=== PATIENT | male | born 1985 | race Caucasian/White ===

== ENCOUNTER → 2017-02-05 | Outpatient (CLI) | payer OTHER ==
[~2017-02-05] MED LIST: ASPCH81 PO; CLON0.5T3 PO; DIVA1CAP PO; ENAL5TAB83 PO; LVQ500 PO; SOTA80TA PO; WARF5TAB7 PO
[2017-02-05 12:13] LABS: MEAN CELL VOLUME 94.5 fL (80-100); MEAN CORPUSCULAR HEMOGLOBIN 33.8 pg (25-34); MEAN CORPUSCULAR HGB CONC 35.8 g/dl (32-36); MEAN PLATELET VOLUME 11.2 fL (7.4-10.4); PLATELET COUNT 102 K/uL (130-400); RED BLOOD COUNT 4.55 M/uL (4.7-6.1); WHITE BLOOD COUNT 2.99 K/uL (4.8-10.8)
[2017-02-05 12:49] LABS: ALT/SGPT 30 U/L (12-78); BLOOD UREA NITROGEN 19 mg/dl (7-18); BUN/CREATININE RATIO 34.2 (10-20); CALCIUM 9.4 mg/dl (8.5-10.1); CARBON DIOXIDE 26 mmol/L (21-32); CHLORIDE 104 mmol/L (98-107); CREATININE 0.55 mg/dl (0.60-1.40); GLUCOSE 72 mg/dl (70-99); POTASSIUM 4.2 mmol/L (3.5-5.1); SODIUM 140 mmol/L (136-145)
[2017-02-05 12:54] LABS: ALB/GLOB RATIO 0.8 (0.9-2); ALKALINE PHOSPHATASE 79 U/L (45-117); AST/SGOT 22 U/L (15-37)
== END | disposition home or self-care (01) ==
LOC: C.LAB1850 11:32
PROVIDERS: ATTEND Internal Medicine
DX: G40.909 Epilepsy, unspecified, not intractable, without status epilepticus (principal); I48.92 Unspecified atrial flutter

== ENCOUNTER 2017-09-26 16:27 | Emergency (ER) | payer OTHER ==
[2017-09-26 16:30] VITALS: TEMP 36.6
[2017-09-26] MEDS ORDERED: SODIUM CHLORIDE 0.9% 500ML 500 ML IV STA (16:46)
[2017-09-26 17:00] VITALS: O2SAT 95
[2017-09-26 17:13] LABS: BASO % 0.3 %; BASO ABS # 0.02 K/uL (0-0.2); COMPLETE YES; HEMATOCRIT 46.8 % (42-52); IG% 0.1 %; LYMPH % 9.1 %; LYMPH ABS # 0.71 K/uL (1.2-3.4); MEAN CELL VOLUME 94.7 fL (80-100); MEAN CORPUSCULAR HEMOGLOBIN 34.4 pg (25-34); MEAN CORPUSCULAR HGB CONC 36.3 g/dl (32-36); MEAN PLATELET VOLUME 11.6 fL (7.4-10.4); MONO % 11.8 %; NEUT % 78.7 %; PLATELET COUNT 109 K/uL (130-400); RED BLOOD COUNT 4.94 M/uL (4.7-6.1)
[2017-09-26 17:16] LABS: MANUAL MICROSCOPIC REQUIRED? NO; REVIEW REQ? NO; URINE APPEARANCE CLOUDY (CLEAR); URINE BILIRUBIN NEG (NEG); URINE COLOR ORANGE; URINE EPITHELIAL CELL AUTO 0-5 /lpf (0-5); URINE NITRITE NEG (NEG); URINE PH 7.5 (4.5-7.5); URINE SPECIFIC GRAVITY 1.019 (1.000-1.030); UROBILINOGEN NEG (NEG)
[2017-09-26 17:20] LABS: INR 3.2 (0.9-1.1); PARTIAL THROMBOPLASTIN RATIO 1.6; PROTHROMBIN TIME (PATIENT) 36.4 SECONDS (9.0-12.0)
[2017-09-26 17:22] LABS: SULFASALICYLIC ACID POS (NEG)
[2017-09-26] MEDS ORDERED: CEFTRIAXONE SOD INJ 1 GM ADDVIAL IV STA (17:24)
--- NOTE | 2017-09-26 17:29 | DIAGNOSTIC IMAGING REPORT ---
CHEST ONE VIEW PORTABLE CLINICAL HISTORY: CHEST PAIN dyspnea COMPARISON STUDY: 02/20/2016 FINDINGS: The bones soft tissues and hemidiaphragms are normal. The cardiomediastinal silhouette is normal. The lungs are clear. The pulmonary vasculature is normal. IMPRESSION: Negative chest. The above report was generated using voice recognition software. It may contain grammatical, syntax or spelling errors. Electronically signed by: Tu Wilkins M.D. 09/26/2017 5:28 PM Dictated Date/Time: 09/26/2017 5:27 PM
[2017-09-26 17:31] LABS: BLOOD UREA NITROGEN 13 mg/dl (7-18); BUN/CREATININE RATIO 22.3 (10-20); CALCIUM 9.3 mg/dl (8.5-10.1); CARBON DIOXIDE 26 mmol/L (21-32); CHLORIDE 102 mmol/L (98-107); CREATININE 0.56 mg/dl (0.60-1.40); GLUCOSE 81 mg/dl (70-99); SODIUM 137 mmol/L (136-145)
[2017-09-26] MEDS ORDERED: CEPH-571 PO (17:49)
--- NOTE | 2017-09-26 17:51 | EMERGENCY ROOM VISIT NOTE ---
History Report prepared by Vivi: Eliza Wynn Under the Supervision of: Dr. Santos Landa M.D. First contact with patient: 16:33 Chief Complaint: HEMATURIA Stated Complaint: PEEING BLOOD, SAYS HE IS REAL SICK-HEART CONDITION History of Present Illness The patient is a 32 year old white male with a past medical history of hypoplastic left heart, pneumonia, epilepsy who presents to the ED with a cc of persistent hematuria beginning today. Positive chills, glossy eyes. Negative testicular pain, penile pain, back pain, burning with urination, chest pain, leg swelling, sore throat, rhinorrhea. He is on Coumadin. He has not had any medication changes. He recently received his flu shot. No recent bike or horse riding. Source of History: patient, family Onset: today Position: other (global) Quality: other (hematuria) Timing: other (persistent) Associated Symptoms: + chills, No sorethroat, No chest pain, No back pain Note: Pt has glossy eyes. Pt denies testicular pain, penile pain, rhinorrhea, burning with urination, leg swelling. Review of Systems See HPI for pertinent positives and negatives. A total of ten systems were reviewed and were otherwise negative. 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 (7) Supraventricular tachycardia Family History Diabetes mellitus FH: heart disease FH: lung disease FHx: cancer Hypertension Kidney stones Social History Smoking Status: Never Smoker Drug Use: none Marital Status: single Housing Status: lives with family Occupation Status: disabled Current/Historical Medications Scheduled Aspirin (Aspirin Tab-Chewable *), 81 MG PO DAILY Cephalexin (Keflex), 1 CAP PO BID Clonazepam (Klonopin), 0.25 MG PO HS Divalproex Sodium (Divalproex Sodium), 475 MG PO BID Enalapril (Vasotec), 5 MG PO BID Sotalol Hcl (Sotalol Hcl), 80 MG PO BID Warfarin Sod (Jantoven), 5 MG PO DAILY Allergies Coded Allergies: No Known Allergies (Unverified , 09/26/17) Physical Exam Vital Signs Date Time Temp Pulse Resp B/P (MAP) Pulse Ox O2 Delivery O2 Flow Rate FiO2 09/26/17 18:22 84 18 107/81 98 Room Air 09/26/17 17:00 95 Room Air 09/26/17 16:30 36.6 71 20 127/75 95 Room Air Physical Exam GENERAL: Awake, alert, well-appearing, NAD HENT: Normocephalic, atraumatic. EYES: Some exophthalmos. Normal conjunctiva. Sclera non-icteric. NECK: Supple. No nuchal rigidity. FROM. RESPIRATORY: CTAB, no rhonchi, wheezing, crackles CARDIAC: RRR, no MRG ABDOMEN: Soft, NTND, BS+ : Foreskin present, but glans visible. No pain to penis. Bilateral testes descended. No pain or swelling. MSK: No chest wall TTP, no LE edema, no CVA TTP. NEURO: GCS 15, CN 2-12 intact, moves all 4s on command SKIN: No rash or jaundice noted. Medical Decision & Procedures ER Provider Diagnostic Interpretation: Radiology results as stated below per my review and radiologist interpretation: CHEST ONE VIEW PORTABLE CLINICAL HISTORY: CHEST PAIN dyspnea COMPARISON STUDY: 02/20/2016 FINDINGS: The bones soft tissues and hemidiaphragms are normal. The cardiomediastinal silhouette is normal. The lungs are clear. The pulmonary vasculature is normal. IMPRESSION: Negative chest. The above report was generated using voice recognition software. It may contain grammatical, syntax or spelling errors. Electronically signed by: Tu Wilkins M.D. 09/26/2017 5:28 PM Dictated Date/Time: 09/26/2017 5:27 PM Laboratory Results 09/26/17 16:52 Red Blood Count 4.94, Mean Corpuscular Volume 94.7, Mean Corpuscular Hemoglobin 34.4, Mean Corpuscular Hemoglobin Concent 36.3, Mean Platelet Volume 11.6, Neutrophils (%) (Auto) 78.7, Lymphocytes (%) (Auto) 9.1, Monocytes (%) (Auto) 11.8, Eosinophils (%) (Auto) 0.0, Basophils (%) (Auto) 0.3, Neutrophils # (Auto ) 6.14, Lymphocytes # (Auto) 0.71, Monocytes # (Auto) 0.92, Eosinophils # (Auto ) 0.00, Basophils # (Auto) 0.02 09/26/17 16:52 Test 09/26/17 16:52 09/26/17 16:57 White Blood Count 7.80 K/uL (4.8-10.8) Red Blood Count 4.94 M/uL (4.7-6.1) Hemoglobin 17.0 g/dL (14.0-18.0) Hematocrit 46.8 % (42-52) Mean Corpuscular Volume 94.7 fL (80-100) Mean Corpuscular Hemoglobin 34.4 pg (25-34) Mean Corpuscular Hemoglobin Concent 36.3 g/dl (32-36) Platelet Count 109 K/uL (130-400) Mean Platelet Volume 11.6 fL (7.4-10.4) Neutrophils (%) (Auto) 78.7 % Lymphocytes (%) (Auto) 9.1 % Monocytes (%) (Auto) 11.8 % Eosinophils (%) (Auto) 0.0 % Basophils (%) (Auto) 0.3 % Neutrophils # (Auto) 6.14 K/uL (1.4-6.5) Lymphocytes # (Auto) 0.71 K/uL (1.2-3.4) Monocytes # (Auto) 0.92 K/uL (0.11-0.59) Eosinophils # (Auto) 0.00 K/uL (0-0.5) Basophils # (Auto) 0.02 K/uL (0-0.2) RDW Standard Deviation 46.2 fL (36.4-46.3) RDW Coefficient of Variation 13.3 % (11.5-14.5) Immature Granulocyte % (Auto) 0.1 % Immature Granulocyte # (Auto) 0.01 K/uL (0.00-0.02) Prothrombin Time 36.4 SECONDS (9.0-12.0) Prothromb Time International Ratio 3.2 (0.9-1.1) Activated Partial Thromboplast Time 41.5 SECONDS (21.0-31.0) Partial Thromboplastin Ratio 1.6 Anion Gap 9.0 mmol/L (3-11) Estimated GFR () > 150.0 Estimated GFR (Non- 137.8 BUN/Creatinine Ratio 22.3 (10-20) Calcium Level 9.3 mg/dl (8.5-10.1) Total Creatine Kinase 79 U/L (39-308) Urine Color ORANGE Urine Appearance CLOUDY (CLEAR) Urine pH 7.5 (4.5-7.5) Urine Specific [place] 1.019 (1.000-1.030) Urine Protein 1+ (NEG) Urine Glucose (UA) NEG (NEG) Urine Ketones 2+ (NEG) Urine Occult Blood 3+ (NEG) Urine Nitrite NEG (NEG) Urine Bilirubin NEG (NEG) Urine Urobilinogen NEG (NEG) Urine Leukocyte Esterase MODERATE (NEG) Urine WBC (Auto) >30 /hpf (0-5) Urine RBC (Auto) >30 /hpf (0-4) Urine Hyaline Casts (Auto) 1-5 /lpf (0-5) Urine Epithelial Cells (Auto) 0-5 /lpf (0-5) Urine Bacteria (Auto) NEG (NEG) Laboratory results reviewed by me Medications Administered Medications (Trade) Dose Ordered Sig/Maya Route Start Time Stop Time Status Last Admin Dose Admin Sodium Chloride 500 ml @ 999 mls/hr Q31M STAT IV 09/26/17 16:46 09/26/17 17:16 DC 09/26/17 17:20 999 MLS/HR Ceftriaxone Sodium (Rocephin Inj) 1 gm NOW STAT IV 09/26/17 17:24 09/26/17 17:25 DC 09/26/17 17:50 1 GM ECG Indication: other Rate (beats per minute): 82 Rhythm: normal sinus Findings: RBBB, ST depression (V3, V4, V5, II, aVF), other (widened QRS) Comparison ECG Date: January 2016 Change: no significant change ED Course 1638: The patient was evaluated in room B12B. A complete history and physical exam was performed. 1646: NSS 500 ml @ 999 mls/hr IV. 1724: Rocephin Inj 1 gm IV. 1728: I reevaluated the patient. Discussed results and discharge instructions: He verbalized understanding and agreement. The patient is ready for discharge. Medical Decision Differential diagnosis: hemorrhagic cystitis, urothelial cancer, renal cell carcinoma, coagulopathy, kidney stone. The patient is a 32 year old white male with a past medical history of hypoplastic left heart, pneumonia, epilepsy who presents to the ED with a cc of persistent hematuria beginning today. Patient was seen and evaluated at the bedside. Patient stated this time he had no penile pain or dysuria. Patient denies any recent trauma. Patient is an issue with this in the past. No prior prior UTIs. Patient has had no back pain , nausea, vomiting. Patient's exam patient had no suprapubic tenderness denied any penile or testicular pain. There is no evident swelling and patient did not have any CVA tenderness to palpation. Patient did have blood work that was completed with a normal white count. Patient's symptoms stable. Patient's INR was mildly elevated at 3.2. Patient did have noted possible infected urine with rbc's. Patient had a normal CPK and normal kidney function. Patient was treated for possible infection. Patient had no CVA tenderness no white count and no change in his kidney function unlikely to be an obstructing or infected stone. Patient was told that if he had fevers, severe back pain, nausea, or vomiting he should return to the ER. Given the patient's mildly elevated INR of 3.2 his mother was told not to take his Coumadin tonight and make sure that she hasn't checked more routinely she has not been getting this checked. Patient's EKG was fairly unremarkable compared to priors and is likely consistent with his prior history of hypoplastic heart. Patient denied any shortness of breath or chest pain or lower extremity swelling. Patient did have a negative chest x-ray. Patient was looking and feeling very well. Patient did receive an IV dose of antibiotics and was discharged on by mouth antibiotics. Patient was given a referral to urology if he has persistent hematuria. Patient was given strict follow-up, discharge, and return precautions and was safely discharged to home. Medication Reconcilliation Current Medication List: was personally reviewed by me Blood Pressure Screening Patient's blood pressure: Normal blood pressure Blood pressure disposition: Did not require urgent referral Impression Primary Impression: Hemorrhagic cystitis Additional Impression: Hematuria Scribe Attestation The scribe's documentation has been prepared under my direction and personally reviewed by me in its entirety. I confirm that the note above accurately reflects all work, treatment, procedures, and medical decision making performed by me. Departure Information Dispostion Home / Self-Care Prescriptions Cephalexin (KEFLEX) 500 Mg Cap 1 CAP PO BID for 7 Days, #14 CAP Prov: Santos Landa M.D. 09/26/17 Referrals No Doctor, Assigned (PCP) Toribio Cook MD, Urology Patient Instructions ED Hematuria, ED UTI Cystitis Male, My [facility] Additional Instructions Please return to the emergency department if you have worsening or recurrent symptoms not amenable to at-home treatment. Please call for a follow-up appointment with her primary care physician. Please take your medications as prescribed. If you have other concerns and/or complaints please feel free to also call your primary care physician's office or return the ED for further evaluation, management, and treatment. Please call the urologist to obtain an appointment if you have persistent hematuria. You may take tylenol 1000mg every 6 hours as needed for pain. Take tramadol for breakthrough pain. Thank you for your time and consideration. I look forward to speaking with you again soon. Please don't hesitate to call us if you have any questions. Problem Qualifiers Additional Impression: Hematuria Hematuria type: unspecified type Qualified Codes: R31.9 - Hematuria, unspecified
[2017-09-26 18:22] VITALS: BP 107/81; PULSE 84; O2SAT 98
== END 2017-09-26 18:24 | disposition home or self-care (01) ==
LOC: C.EDB 16:28
DX: N30.91 Cystitis, unspecified with hematuria (principal); F95.2 Tourette's disorder; G40.909 Epilepsy, unspecified, not intractable, without status epilepticus; Z79.01 Long term (current) use of anticoagulants; Z79.82 Long term (current) use of aspirin; Z95.0 Presence of cardiac pacemaker; Z83.3 Family history of diabetes mellitus; Z82.49 Family history of ischemic heart disease and other diseases of the circulatory system

== ENCOUNTER 2017-10-27 18:12 | Emergency (ER) | payer OTHER ==
[~2017-10-27] VITALS: Ht 162.6 cm; Wt 51.7 kg
[~2017-10-27 18:12] MED LIST changes: -LEVO-366 PO
[2017-10-27 18:18] VITALS: TEMP 36.8; Ht 162.6 cm; Wt 51.7 kg
[2017-10-27] MEDS ORDERED: LEVO-366 PO (18:43)
[2017-10-27] MEDS ORDERED: ALBUTEROL HFA 8 GM INHALER INH STA (19:08)
[2017-10-27 19:35] VITALS: BP 130/70; PULSE 98; O2SAT 98
--- NOTE | 2017-10-28 02:32 | EMERGENCY ROOM VISIT NOTE ---
History First contact with patient: 18:24 Chief Complaint: COUGH Stated Complaint: COUGH SENT BY DOC Nursing Triage Summary: patient c/o persistent cough that has not improved. History of Present Illness The patient is a 32 year old male, history of hypoplastic left heart syndrome and other chronic medical problems, who presents to the Emergency Room with his parents with complaints of cough for the past 4 days. The patient was seen at his PCPs office this afternoon, and referred here after having an abnormal chest x-ray report for possible pneumonia. This was a callback for an abnormal report, and was instructed to come to the emergency department. The parents report the patient had a severe pneumonia early last year, and elected to seek further early follow-up given his history of heart disease. They report that the patient has been more anxious than usual. The patient currently denies any chest pain or productive cough. 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 (7) Supraventricular tachycardia Family History Diabetes mellitus FH: heart disease FH: lung disease FHx: cancer Hypertension Kidney stones Social History Smoking Status: Never Smoker Drug Use: none Marital Status: single Housing Status: lives with family Occupation Status: disabled Current/Historical Medications Scheduled Aspirin (Aspirin Tab-Chewable *), 81 MG PO DAILY Clonazepam (Klonopin), 0.25 MG PO HS Divalproex Sodium (Divalproex Sodium), 475 MG PO BID Enalapril (Vasotec), 5 MG PO BID Levofloxacin (Levaquin), 500 MG PO DAILY Sotalol Hcl (Sotalol Hcl), 80 MG PO BID Warfarin Sod (Jantoven), 5 MG PO DAILY Physical Exam Vital Signs Date Time Temp Pulse Resp B/P (MAP) Pulse Ox O2 Delivery O2 Flow Rate FiO2 10/27/17 19:35 98 20 130/70 98 10/27/17 18:18 36.8 59 18 128/86 95 Room Air Physical Exam CONSTITUTIONAL: Healthy and well nourished. Patient had a minimal nonproductive cough, and did not appear in any acute respiratory distress. HEENT: Normocephalic, atraumatic. Pupils equal, round and reactive. Ears and nares are clear. OROPHARYNX: No posterior pharyngeal erythema or tonsillar hypertrophy. NECK: Full active range of motion without discomfort. RESPIRATORY: Clear to auscultation bilaterally with no wheezing, crackles, rhonchi or stridor. CARDIOVASCULAR: Regular rate and rhythm with no murmurs, rubs or gallops. GASTROINTESTINAL: Bowel sounds present in all quadrants. Soft and nontender to palpation. MUSCULOSKELETAL: Full range of motion of all joints without discomfort. INTEGUMENTARY: No rash or other significant dermatologic conditions noted. NEUROLOGIC: No focal neurologic deficits noted. Medical Decision & Procedures ER Provider Diagnostic Interpretation: I personally reviewed chest x-rayluxation from this afternoon, and review the radiologist's report, which shows a probable bronchopneumonia: CHEST 2 VIEWS ROUTINE CLINICAL HISTORY: 32 years-old Male presenting with COUGH,FEVER. TECHNIQUE: PA and lateral views of the chest were obtained. COMPARISON: 09/26/2017. FINDINGS: Median sternotomy wires and mediastinal surgical clips unchanged. Cardiac silhouette unchanged in configuration, mildly enlarged. Mild bronchial wall thickening may be present without significant pulmonary vascular prominence. An epicardial pacer ejects over the right midabdomen with leads to the right atrium and right ventricle. Minimal nodular opacities may be present in the left mid and right lower lung. No pleural effusion or pneumothorax. Osseous structures normal. Upper abdomen normal. IMPRESSION: 1. Mild bronchial wall thickening could suggest bronchitis/bronchiolitis. Suggestion of vague nodular opacities, which may better demonstrated with chest CT. Bronchopneumonia is not excluded. Medications Administered Medications (Trade) Dose Ordered Sig/Maya Route Start Time Stop Time Status Last Admin Dose Admin Albuterol (Ventolin Hfa Inhaler) 2 puffs ONE STAT INH 10/27/17 19:08 10/27/17 19:09 DC 10/27/17 19:30 2 PUFFS ED Course This is notes were reviewed. Vital signs were reviewed and are normal. O2 saturation was 95% on room air in triage. The patient is afebrile and normotensive. He also does not appear in any acute respiratory distress. I did review documentation from the patient's admission last year. The patient was ultimately discharged on Levaquin antibiotics. At this point, I feel that further aggressive antibiotic treatment is warranted. The patient was provided a similar prescription for Levaquin 500 mg daily 7 days. I did suggest close follow-up with the PCP, and possibly driver guide as warranted if symptoms are not improving. I did suggest returning to the emergency department if clinical symptoms do appear to be worsening. The patient and parents were happy with plan of care, and voiced understanding of all discharge instructions. Medical Decision Medication Reconcilliation Current Medication List: was personally reviewed by me Blood Pressure Screening Patient's blood pressure: Normal blood pressure Impression Primary Impression: Bronchopneumonia Departure Information Dispostion Home / Self-Care Condition GOOD Prescriptions Levofloxacin (Levaquin) 500 Mg Tab 500 MG PO DAILY for 7 Days, #7 TAB Prov: Grant Saxena PA 10/27/17 Forms HOME CARE DOCUMENTATION FORM, IMPORTANT VISIT INFORMATION Patient Instructions My [facility] Additional Instructions Complete all Levaquin antibiotics as prescribed. Follow-up with your PCP in the next 2-3 days for reevaluation. Return to the emergency department for any progressively worsening symptoms.
== END 2017-10-27 19:37 | disposition home or self-care (01) ==
LOC: C.EDB 18:13 → C.EDC 19:37
DX: J18.0 Bronchopneumonia, unspecified organism (principal); Q23.4 Hypoplastic left heart syndrome; Z95.0 Presence of cardiac pacemaker; G40.909 Epilepsy, unspecified, not intractable, without status epilepticus; Z79.82 Long term (current) use of aspirin; Z79.01 Long term (current) use of anticoagulants; Z83.3 Family history of diabetes mellitus; Z82.49 Family history of ischemic heart disease and other diseases of the circulatory system; Z80.9 Family history of malignant neoplasm, unspecified; Z84.1 Family history of disorders of kidney and ureter; R05 Cough; R50.9 Fever, unspecified

== ENCOUNTER → 2017-10-27 | Outpatient (CLI) | payer OTHER ==
[~2017-10-27] MED LIST changes: +LEVO-366 PO; -LVQ500 PO
--- NOTE | 2017-10-27 17:22 | DIAGNOSTIC IMAGING REPORT ---
CHEST 2 VIEWS ROUTINE CLINICAL HISTORY: 32 years-old Male presenting with COUGH,FEVER. TECHNIQUE: PA and lateral views of the chest were obtained. COMPARISON: 09/26/2017. FINDINGS: Median sternotomy wires and mediastinal surgical clips unchanged. Cardiac silhouette unchanged in configuration, mildly enlarged. Mild bronchial wall thickening may be present without significant pulmonary vascular prominence. An epicardial pacer ejects over the right midabdomen with leads to the right atrium and right ventricle. Minimal nodular opacities may be present in the left mid and right lower lung. No pleural effusion or pneumothorax. Osseous structures normal. Upper abdomen normal. IMPRESSION: 1. Mild bronchial wall thickening could suggest bronchitis/bronchiolitis. Suggestion of vague nodular opacities, which may better demonstrated with chest CT. Bronchopneumonia is not excluded. Electronically signed by: Robb Azar M.D. 10/27/2017 5:20 PM Dictated Date/Time: 10/27/2017 5:17 PM
== END | disposition home or self-care (01) ==
LOC: C.RAD1850 16:37
PROVIDERS: ATTEND Internal Medicine
DX: R05 Cough (principal); R50.9 Fever, unspecified

== ENCOUNTER → 2017-10-31 | Outpatient (CLI) | payer OTHER ==
[~2017-10-31] MED LIST changes: +LEVO-366 PO
[2017-10-31 12:31] LABS: INR 3.5 (0.9-1.1); PROTHROMBIN TIME (PATIENT) 38.9 SECONDS (9.0-12.0)
== END | disposition home or self-care (01) ==
LOC: C.LAB1850 10:52
PROVIDERS: ATTEND Internal Medicine Cardiovascular Disease
DX: I48.92 Unspecified atrial flutter (principal)

== ENCOUNTER → 2017-12-16 | Outpatient (CLI) | payer OTHER ==
[~2017-12-16] MED LIST changes: -LEVO-366 PO
== END | disposition home or self-care (01) ==
LOC: C.LAB1850 11:59
PROVIDERS: ATTEND Physician Assistant
DX: J02.9 Acute pharyngitis, unspecified (principal)

== ENCOUNTER → 2017-12-29 | Outpatient (CLI) | payer OTHER ==
--- NOTE | 2017-12-29 15:48 | DIAGNOSTIC IMAGING REPORT ---
TWO VIEW CHEST CLINICAL HISTORY: Acute upper respiratory tract infection.. FINDINGS: PA and lateral chest radiographs are compared to study dated 10/27/2017 and correlated with chest CT dated 02/20/2016. Midline sternotomy wires are noted. The heart appears mildly enlarged. The pulmonary vascular is noncongested. Epicardial pacing leads are noted. A pacemaker device is present in the upper abdomen. The lungs and pleural spaces are clear. There is no pneumothorax. The bony thorax appears intact. IMPRESSION: 1. Mild cardiac enlargement. 2. No airspace consolidation or pleural effusion is identified. Electronically signed by: Naresh Cifuentes M.D. 12/29/2017 3:46 PM Dictated Date/Time: 12/29/2017 3:45 PM
== END | disposition home or self-care (01) ==
LOC: C.RAD1850 15:24
PROVIDERS: ATTEND Internal Medicine
DX: J06.9 Acute upper respiratory infection, unspecified (principal)

== ENCOUNTER → 2018-02-11 | Outpatient (CLI) | payer OTHER ==
[~2018-02-11] MED LIST changes: -DIVA1CAP PO; +DIVA1CAP5 PO
[2018-02-11 12:27] LABS: BASO % 0.4 %; BASO ABS # 0.01 K/uL (0-0.2); EOS % 1.6 %; EOS ABS # 0.04 K/uL (0-0.5); HEMATOCRIT 47.6 % (42-52); HEMOGLOBIN 16.4 g/dL (14.0-18.0); LYMPH % 36.3 %; MEAN CELL VOLUME 95.2 fL (80-100); MEAN CORPUSCULAR HEMOGLOBIN 32.8 pg (25-34); MEAN CORPUSCULAR HGB CONC 34.5 g/dl (32-36); MEAN PLATELET VOLUME 11.2 fL (7.4-10.4); MONO % 12.1 %; NEUT % 49.6 %; NEUT ABS # 1.23 K/uL (1.4-6.5); PLATELET COUNT 103 K/uL (130-400); RED CELL DISTRIBUTION WIDTH CV 13.9 % (11.5-14.5); RED CELL DISTRIBUTION WIDTH SD 48.5 fL (36.4-46.3); WHITE BLOOD COUNT 2.48 K/uL (4.8-10.8)
[2018-02-11 12:31] LABS: INR 2.4 (0.9-1.1)
[2018-02-11 13:00] LABS: ALT/SGPT 40 U/L (12-78); AST/SGOT 24 U/L (15-37); BLOOD UREA NITROGEN 17 mg/dl (7-18); CALCIUM 9.4 mg/dl (8.5-10.1); CARBON DIOXIDE 27 mmol/L (21-32); CREATININE 0.51 mg/dl (0.60-1.40); GLUCOSE 71 mg/dl (70-99); POTASSIUM 4.1 mmol/L (3.5-5.1); SODIUM 136 mmol/L (136-145)
[2018-02-11 13:15] LABS: ALKALINE PHOSPHATASE 93 U/L (45-117); TOTAL PROTEIN 8.6 gm/dl (6.4-8.2)
== END | disposition home or self-care (01) ==
LOC: C.LAB1850 11:39
PROVIDERS: ATTEND Psychiatry & Neurology Neurology
DX: I48.92 Unspecified atrial flutter (principal); G40.909 Epilepsy, unspecified, not intractable, without status epilepticus

== ENCOUNTER 2018-03-29 10:07 | Emergency (ER) | payer OTHER ==
[2018-03-29 10:37] VITALS: BP 113/61; PULSE 58; TEMP 36.5; O2SAT 94
[2018-03-29] MEDS ORDERED: ASPI81TA28 PO (10:51)
[2018-03-29] MEDS ORDERED: ERYOPO OPB (11:13)
[2018-03-29] MEDS ORDERED: AMOX500C3 PO (11:13)
[2018-03-29] MEDS ORDERED: ERYTHROMYCIN OP OINT 5 MG/GM 3.5 GM TUBE OP ONE (11:15)
--- NOTE | 2018-03-29 17:24 | EMERGENCY ROOM VISIT NOTE ---
ED Visit Note First contact with patient: 10:50 CHIEF COMPLAINT: Red, irritated eyes, cough HISTORY OF PRESENT ILLNESS: This 32-year-old white male presents with his mother for evaluation of his eyes. She complains of redness in his eyes which has gradually increased over the past 2 days. Mild constant pain. There is copious discharge from the eyes and the lids were crusted this morning. No difficulty with vision. No headache, rash, sore throat, nausea or vomiting. He does note considerable rhinorrhea. She notes a dry nonproductive cough. He was at [place] 3 days ago for a heart checkup. She is unsure if he may have picked up cynthiae. No treatment yet. No other complaints. He does not wear contact lenses. Denies any chemical exposure. REVIEW OF SYSTEM: HEENT: No dizziness, hearing loss, or tinnitus. There is no difficulty swallowing and no oral lesions are present. PULMONARY: No cough, shortness of breath, sputum production or hemoptysis. CARDIOVASCULAR: No chest pain, palpitations, shortness of breath or peripheral edema. GASTROINTESTINAL: No diarrhea, constipation, nausea, vomiting, or abdominal pain. GENITOURINARY: No dysuria, frequency, urgency or nocturia. NEUROLOGIC: No weakness or muscle tenderness. Positive history of epilepsy. MUSCULOSKELETAL: No history of joint tenderness/swelling. SKIN: No rashes or lesions. PSYCHIATRIC: Positive history of OCD and Tourette's. ENDOCRINE: No history of diabetes, thyroid disorders, or abnormal hair growth. PMH: Supplemental sheet was reviewed and signed. Previous surgeries: Open heart surgery 3 Medical history: Significant for hypoplastic left heart, heart disease, hypertension, OCD, Tourette's, and epilepsy Current medications: Reviewed and filed in patient's chart Allergies: NKDA SOCIAL HISTORY: Patient lives at home with his mother. Unemployed. No tobacco use, no EtOH use. PHYSICAL EXAM: Vital Signs: Afebrile. Reviewed and filed in patient's chart. SKIN: Warm and dry with good turgor. No rashes or lesions. No ecchymosis or erythema. The patient is not diaphoretic. No abrasions. EYE(S): Both pupils equal and reactive, EOMs full. There is whitish discharge in both eyes and moderate to severe injection. There is no foreign body of the eyelid with lid eversion. He has purulent drainage in the gutters of both lower lids. Several crusted material on eyelashes of both eyes. Normocephalic atraumatic. Ears TMs intact bilaterally with good light reflexes. No erythema or bulging. No hemotympanum. Canals are patent. Nares patent bilaterally without turbinate enlargement. There is bilateral yellow nasal drainage. No epistaxis. Oropharynx without erythema or exudate. Uvula midline, oral mucosa moist. No lesions present. Lymphatics are palpated without anterior or posterior chain enlargement or tenderness. DIAGNOSIS: Bilateral eye conjunctivitis. Sinusitis. DISCHARGE INSTRUCTIONS: The patient was educated regarding today's findings as was his mother. Conservative care measures were discussed. They were dispensed Erythromycin eye ointment to be used 1/4 inch in the eyes every 8 hours while awake x5 days. Additional prescription was provided. Prescription was also provided for amoxicillin 500 rems 3 times daily 10 days for the sinusitis. See an bender machine in 3 days if he is not improving. Avoid touching the face and wash hands frequently. Conjunctivitis handout was provided. Tylenol every 6 hours as needed for discomfort. She may continue with warm moist compresses on the eyes to remove the crusting. He is unable to take traditional anti-inflammatories due to his anticoagulant use. 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 (6) Supraventricular tachycardia Status: Resolved Current/Historical Medications Scheduled Amoxicillin (Amoxil), 500 MG PO TID Aspirin (Aspirin Ec), 81 MG PO DAILY Clonazepam (Klonopin), 0.25 MG PO HS Divalproex Sodium (Divalproex Sodium), 475 MG PO BID Enalapril (Vasotec), 5 MG PO BID Erythromycin Opth (Erythromycin Opth), 1 APPLN OPB TID Sotalol Hcl (Sotalol Hcl), 80 MG PO BID Warfarin Sod (Jantoven), 5 MG PO DAILY Allergies Coded Allergies: No Known Allergies (Unverified , 09/26/17) Vital Signs Date Time Temp Pulse Resp B/P (MAP) Pulse Ox O2 Delivery O2 Flow Rate FiO2 03/29/18 10:37 36.5 58 20 113/61 94 Room Air Medications Administered Medications (Trade) Dose Ordered Sig/Maya Route Start Time Stop Time Status Last Admin Dose Admin Erythromycin (Erythromycin Oph Oint) 1 appln NOW ONCE OP 03/29/18 11:15 03/29/18 11:16 DC 03/29/18 11:13 1 APPLN Departure Information Impression Primary Impression: Sinusitis, acute Additional Impression: Acute bacterial conjunctivitis of both eyes Dispostion Home / Self-Care Condition GOOD Prescriptions Erythromycin Opth (ERYTHROMYCIN OPTH) 12 Appln/3.5 Gm Oint 1 APPLN OPB TID, #1 TUBE 1 Refill 1/4 inch in both lower lids 3 x day x 5 days Prov: Addison Gaviria,P.A. 03/29/18 Amoxicillin (AMOXIL) 500 Mg Cap 500 MG PO TID, #30 CAP Prov: Addison Gaviria,P.A. 03/29/18 Forms WORK / SCHOOL INSTRUCTIONS, HOME CARE DOCUMENTATION FORM, TYLENOL USE, IMPORTANT VISIT INFORMATION Patient Instructions [facility], ED Conjunctivitis Bacterial Additional Instructions Erythromycin ointment 1/4 inch in the lower lids of each eye 3 times a day 5 days Avoid touching the face if possible Wash hands frequently after touching his face Tylenol every 6 hours as needed for mild discomfort Amoxil 1 pill 3 times a day 10 days Follow-up with your PCP this week if symptoms are not improving Problem Qualifiers
== END 2018-03-29 11:20 | disposition home or self-care (01) ==
LOC: C.EDB 10:08 → C.EDD 11:20
DX: J01.90 Acute sinusitis, unspecified (principal); H10.023 Other mucopurulent conjunctivitis, bilateral; G40.909 Epilepsy, unspecified, not intractable, without status epilepticus; F95.2 Tourette's disorder; Z95.0 Presence of cardiac pacemaker; F42.9 Obsessive-compulsive disorder, unspecified; Z79.82 Long term (current) use of aspirin; Z79.01 Long term (current) use of anticoagulants; Z79.899 Other long term (current) drug therapy